=== PATIENT | female | born 1970 | race Two or more races ===

== ENCOUNTER 2023-10-01 08:35 | Inpatient (IN) | payer MEDICAID ==
[~2023-10-01] VITALS: Ht 160 cm; Wt 68.5 kg
[2023-10-01 09:14] LABS: Basophils # (auto) 0 10 ^3/uL (0-0.2); Basophils % (auto) 0.2 % (0.0-2.0); Eosinophils # (auto) 0.2 10 ^3/uL (0-0.8); Eosinophils % (auto) 2.1 % (0.0-7.0); Hematocrit 47.3 % (36.0-46.0); Lymphocytes # (auto) 2.3 10 ^3/uL (0.4-5.4); Lymphocytes % (auto) 25.8 % (10.0-50.0); Mean Corpuscular Hemoglobin 32.6 pg (28.0-32.0); Mean Corpuscular Hgb Conc. 33.9 g/dL (32.0-36.0); Mean Corpuscular Volume 96.1 fL (80.0-100.0); Monocytes # (auto) 0.6 10 ^3/uL (0-1.3); Monocytes % (auto) 6.2 % (0.0-12.0); Neutrophils % (auto) 65.7 % (37.0-80.0); Red Blood Cells 4.92 10^6/uL (4.0-5.20); Red Cell Distribution Width 12.4 % (11.8-14.3); White Blood Cell 9.1 10^3/uL (4.4-10.8)
[2023-10-01 09:20] LABS: Urine Bacteria None Seen /hpf (None Seen)
[2023-10-01 09:24] LABS: Alanine Aminotransferase 43 U/L (7-40); Albumin 4.2 g/dL (3.2-4.8); Alkaline Phosphatase 141 U/L (46-116); Anion Gap 5 (5-15); BUN/Creatinine Ratio 14.8 (10.0-20.0); Bilirubin, Total 0.5 mg/dL (0.2-1.0); Blood Urea Nitrogen 13 mg/dL (9-23); Calcium 9.9 mg/dL (8.5-10.1); Carbon Dioxide 29 mmol/L (20-30); Chloride 103 mmol/L (98-107); Potassium 4.7 mmol/L (3.5-5.1); Sodium 137 mmol/L (136-145); Total Protein 7.3 g/dL (5.7-8.2)
[2023-10-01 09:30] VITALS: PULSE 85; RESP 12; O2SAT 93
[2023-10-01 09:30] LABS: Glucose 455 mg/dL (74-106)
[2023-10-01 09:30] LABS: Urine Blood Negative /uL (Negative); Urine Clarity Clear (Clear); Urine Color Light-Yellow (Yellow); Urine Protein, UAD Negative (Negative); Urine Specific Gravity 1.044 (1.001-1.035); Urine Urobilinogen Normal (Negative); Urine WBC <1 /hpf (0 - 5); Urine pH 6.5 (5.0-9.0)
[2023-10-01 09:36] LABS: Aspartate Aminotransferase 31 U/L (13-40)
[2023-10-01] MEDS: InsuLIN REG 1unit/0.01ml Soln (100units/ml) IV ONE (11:25)
[2023-10-01] MEDS: SODIUM CHLORIDE 0.9% 1,000 ML IV ONE (11:25)
[2023-10-01] MEDS ORDERED: DOCUSATE SOD 100 MG CAP PO PRN (14:15)
[2023-10-01] MEDS ORDERED: DEXTROSE (50%) 50ML SYRG IV PRN (14:15)
[2023-10-01] MEDS ORDERED: ONDANSETRON HCL 4 MG/2 ML VIAL IV PRN (14:15)
[2023-10-01] MEDS ORDERED: MORPHINE SULFATE INJ 2 MG/ml SYRG IV PRN (14:15)
[2023-10-01] MEDS: SODIUM CHLORIDE 0.9% 1,000 ML IV SCH (14:44)
[2023-10-01] MEDS: InsuLIN REG 1unit/0.01ml Soln (100units/ml) SC SCH (16:34)
[2023-10-01] MEDS: ACCU-CHEK COMFORT CURVE STRIP VI SCH (16:34)
[2023-10-01 18:30] VITALS: BP 135/75; PULSE 90; RESP 20; TEMP 97.9; O2SAT 99
[2023-10-01 20:00] VITALS: RESP 18
[2023-10-02] VITALS (7 sets, daily range): BP systolic 116–130; BP diastolic 63–81; PULSE 63–78; RESP 16–20; TEMP 97.9–98.5; O2SAT 95–99
[2023-10-02 06:35] LABS: Basophils # (auto) 0 10 ^3/uL (0-0.2); Basophils % (auto) 0.1 % (0.0-2.0); Eosinophils # (auto) 0.2 10 ^3/uL (0-0.8); Eosinophils % (auto) 2.3 % (0.0-7.0); Hematocrit 44.3 % (36.0-46.0); Hemoglobin 14.9 g/dL (12.2-16.2); Lymphocytes # (auto) 2.2 10 ^3/uL (0.4-5.4); Lymphocytes % (auto) 29.6 % (10.0-50.0); Mean Corpuscular Hgb Conc. 33.7 g/dL (32.0-36.0); Monocytes # (auto) 0.5 10 ^3/uL (0-1.3); Monocytes % (auto) 6.4 % (0.0-12.0); Neutrophils # (auto) 4.7 10 ^3/uL (1.6-8.6); Neutrophils % (auto) 61.6 % (37.0-80.0); Red Blood Cells 4.66 10^6/uL (4.0-5.20); Red Cell Distribution Width 12.3 % (11.8-14.3); White Blood Cell 7.6 10^3/uL (4.4-10.8)
[2023-10-02 06:59] LABS: Alanine Aminotransferase 33 U/L (7-40); Albumin 3.6 g/dL (3.2-4.8); Alkaline Phosphatase 86 U/L (46-116); Anion Gap 6 (5-15); Aspartate Aminotransferase 25 U/L (13-40); BUN/Creatinine Ratio 19.7 (10.0-20.0); Blood Urea Nitrogen 12 mg/dL (9-23); Calcium 8.6 mg/dL (8.5-10.1); Carbon Dioxide 26 mmol/L (20-30); Chloride 107 mmol/L (98-107); Glucose 173 mg/dL (74-106); Potassium 3.6 mmol/L (3.5-5.1); Sodium 139 mmol/L (136-145)
[2023-10-02 07:00] LABS: Bilirubin, Total 0.4 mg/dL (0.2-1.0); Total Protein 6.3 g/dL (5.7-8.2)
[2023-10-02] MEDS: INSULIN LANTUS (GLARGINE) 1 /0.01ml (100units/ml) SC SCH (21:21)
[2023-10-03 05:00] VITALS: BP 136/77; PULSE 74; RESP 18; TEMP 98; O2SAT 97
[2023-10-03 08:00] VITALS: BP 138/93; PULSE 78; RESP 16; TEMP 96.2
[2023-10-03 08:23] VITALS: BP 138/93; PULSE 78; RESP 16; TEMP 98; O2SAT 97
[2023-10-03 12:16] VITALS: BP 121/88; PULSE 65; RESP 16; TEMP 98.6; O2SAT 94
[2023-10-03] MEDS ORDERED: GLIP10TA9 PO (12:36)
[2023-10-03] MEDS ORDERED: METF-372 PO (12:36)
[2023-10-03] MEDS ORDERED: BLOO1KIT60 XX (12:36)
[2023-10-03 13:08] VITALS: BP 121/88; PULSE 65; RESP 16; TEMP 37; O2SAT 94
== END 2023-10-03 14:00 | disposition home or self-care (01) | DRG 420 ==
LOC: ER 08:35 → OVERFLOW 14:08 → WEST WING 18:29
PROVIDERS: ADMIT Nurse Practitioner Family; ATTEND Nurse Practitioner Family
DX: E11.65 Type 2 diabetes mellitus with hyperglycemia (principal); I10 Essential (primary) hypertension; R74.01 Elevation of levels of liver transaminase levels; Z98.51 Tubal ligation status; Z79.899 Other long term (current) drug therapy
CPT/HCPCS: 36415; 80053; 81001; 82010; 82962; 83036; 85025; G0378; J1815